=== PATIENT | male | born 2000 | race Caucasian/White ===

== ENCOUNTER 2019-11-13 17:32 | Emergency (ER) | payer OTHER ==
[~2019-11-13] VITALS: Ht 175.3 cm; Wt 80.6 kg
[2019-11-13 17:33] VITALS: BP 130/69
[2019-11-13] MEDS ORDERED: LIDOCAINE W/EPINEPHRINE 1% 20ML VIAL SC ONE (17:45)
[2019-11-13] MEDS ORDERED: BACTRIM 160MG/800MG DS TAB PO ONE (18:30)
[2019-11-13] MEDS ORDERED: BACT800T5 PO (18:41)
== END 2019-11-13 18:48 | disposition home or self-care (01) ==
LOC: M ED 17:32
DX: S51.812A Laceration without foreign body of left forearm, initial encounter (principal); W22.8XXA Striking against or struck by other objects, initial encounter; Y93.16 Activity, rowing, canoeing, kayaking, rafting and tubing; Y92.828 Other wilderness area as the place of occurrence of the external cause; Y99.9 Unspecified external cause status